=== PATIENT | female | born 1990 | race Caucasian/White ===

== ENCOUNTER 2017-01-05 00:20 | Inpatient (IN) | payer MEDICAID ==
[~2017-01-05] VITALS: Ht 162.6 cm; Wt 97.5 kg
[2017-01-05] MEDS ORDERED: IRON65TA11 PO (01:57)
[2017-01-05] MEDS ORDERED: PREN-546 PO (01:59)
[2017-01-05] MEDS ORDERED: LACTATED RINGERS 1,000 ML IV SCH (02:00)
[2017-01-05] MEDS ORDERED: CITRIC ACID/SODIUM CITRATE 30 ML UDC PO ONE (02:05)
[2017-01-05] MEDS ORDERED: ceFAZolin 1,000 MG VIAL ONE (02:08)
[2017-01-05] MEDS ORDERED: CITRIC ACID/SODIUM CITRATE 30 ML UDC ONE (02:11)
[2017-01-05 02:39] LABS: APPEARANCE,URINE SL CLOUDY (CLEAR); BILIRUBIN,URINE NEGATIVE (NEGATIVE); BLOOD, URINE NEGATIVE (NEGATIVE); COLOR,URINE YELLOW (YELLOW); LEUKOCYTE ESTERASE ,URINE NEGATIVE (NEGATIVE); NITRITE, URINE NEGATIVE (NEGATIVE); PROTEIN,URINE NEGATIVE (NEGATIVE); UGLUCOSE NEGATIVE (NEGATIVE); UROBILINOGEN,URINE 0.2 EU/dL (0.2 - 1)
[2017-01-05 02:46] LABS: BASOPHILS % (AUTO) 0.3 % (0.0-2.0); EOSINOPHILS # (AUTO) 0.1 K/uL (0-0.4); EOSINOPHILS % (AUTO) 0.7 % (0.0-4.0); HEMATOCRIT 37.2 % (36-48); HEMOGLOBIN 12.5 g/dL (12.0-16.0); LYMPHOCYTES # (AUTO) 1.8 K/uL (2.5-16.5); LYMPHOCYTES % (AUTO) 16.8 % (20.5-51.1); MEAN CORPUSCULAR HEMOGLOBIN 29 pg (27-31); MEAN CORPUSCULAR HGB CONC 33 g/dL (33-37); MEAN CORPUSCULAR VOLUME 86 fL (80-94); MONOCYTES % (AUTO) 9.2 % (1.7-9.3); NEUTROPHILS # (AUTO) 7.6 K/uL (1.8-7.7); PLATELET COUNT (AUTO) 224 K/uL (140-450); RED BLOOD CELL COUNT(AUTO) 4.31 MIL/uL (4.20-5.40); RED CELL DISTRIBUTION WIDTH 16.8 % (11.6-13.7); WHITE BLOOD COUNT (AUTO) 10.5 K/uL (4.8-10.8)
[2017-01-05 02:53] LABS: ALBUMIN 2.4 g/dL (3.4-5.0); ANION GAP 15.4 (8-16); CALCIUM 7.9 mg/dL (8.5-10.1); CARBON DIOXIDE 22.8 mmol/L (21-32); CREATININE 0.4 mg/dL (0.6-1.3); POTASSIUM 3.2 mmol/L (3.5-5.1); TOTAL BILIRUBIN 0.3 mg/dL (0.0-1.0); TOTAL PROTEIN, SERUM 6.1 g/dL (6.4-8.2)
[2017-01-05 03:21] LABS: HIV RAPID SCREEN NON-REACTIVE (NON REACTIV)
[2017-01-05 03:30] LABS: BACTERIA,URINE FEW /HPF (None Seen); RBC,URINE 0-5 (RARE) /HPF (0-5); SQUAMOUS EPITHELIAL CELL,UR 0-3 (FEW) /LPF (0-3 (FEW)); WBC,URINE 0-5 (RARE) /HPF (0-5)
[2017-01-05 06:33] VITALS: BP 108/67
[2017-01-05] MEDS ORDERED: HYDROcodone/APAP 5/325 MG 1 TAB TAB PO PRN (06:50)
[2017-01-05] MEDS ORDERED: MEASLES, MUMPS, AND RUBELLA 1 VIAL SQVAC PRN (06:50)
[2017-01-05] MEDS ORDERED: TEMAZEPAM 15 MG CAP PO PRN (06:50)
[2017-01-05] MEDS ORDERED: TRIMETHOBENZAMIDE 200 MG/2 ML SYR IM PRN (06:50)
[2017-01-05] MEDS ORDERED: IBUPROFEN 800 MG TAB PO PRN (06:50)
[2017-01-05] MEDS ORDERED: METHYLERGONOVINE 0.2 MG/ML AMP IM PRN (06:50)
[2017-01-05] MEDS ORDERED: fentaNYL 0.05 MG/ML VIAL ONE (07:12)
[2017-01-05] MEDS ORDERED: KETAMINE 500 MG/5 ML VIAL ONE (07:12)
[2017-01-05] MEDS ORDERED: MIDAZOLAM 2 MG/2 ML VIAL ONE (07:12)
[2017-01-05] MEDS ORDERED: MORPHINE PRES FREE 10 MG/10 ML AMP IV ONE (07:13)
[2017-01-05 07:30] LABS: RAPID PLASMA REAGIN NON-REACTIVE (Non Reactiv)
[2017-01-05] MEDS ORDERED: METHYLERGONOVINE 0.2 MG/ML AMP ONE (07:41)
[2017-01-05] MEDS ORDERED: diphenhydrAMINE 50 MG/ML VIAL IVP PRN (07:55)
[2017-01-05] MEDS ORDERED: ONDANSETRON 4 MG/2 ML VIAL IVP PRN (07:55)
[2017-01-05] MEDS ORDERED: KETOROLAC 30 MG/ML VIAL IVP PRN (07:55)
--- NOTE | 2017-01-05 07:56 | NUR ---
PATIENT HAS BEEN SCREENED AND CATEGORIZED LOW NUTRITION RISK. PATIENT WILL BE SEEN WITHIN 7 DAYS OF ADMISSION. 01/11/[address]
[2017-01-05] MEDS ORDERED: OXYTOCIN 20 UNITS/LR PREMIX 1,000 ML IV ONE (08:09)
[2017-01-05] MEDS: OXYTOCIN 20 UNITS/LR PREMIX 1,000 ML IV SCH ×2 (10:33→17:32)
[2017-01-05] MEDS ORDERED: DOCUSATE SOD/SENNA 50/8.6 MG 1 TAB PO SCH (21:00)
[2017-01-06] MEDS ORDERED: INFLUENZA VIRUS VACCINE QUAD 0.5 ML SYR IMVAC SCH ×2 (01:00→22:30)
[2017-01-06] MEDS: OXYTOCIN 20 UNITS/LR PREMIX 1,000 ML IV SCH (01:58)
[2017-01-06 05:41] LABS: BASOPHILS % (AUTO) 0.1 % (0.0-2.0); EOSINOPHILS # (AUTO) 0.2 K/uL (0-0.4); EOSINOPHILS % (AUTO) 1.4 % (0.0-4.0); HEMATOCRIT 33.4 % (36-48); LYMPHOCYTES # (AUTO) 1.1 K/uL (2.5-16.5); LYMPHOCYTES % (AUTO) 7.3 % (20.5-51.1); MEAN CORPUSCULAR HEMOGLOBIN 29 pg (27-31); MEAN CORPUSCULAR HGB CONC 33 g/dL (33-37); MEAN CORPUSCULAR VOLUME 88 fL (80-94); MONOCYTES % (AUTO) 6.6 % (1.7-9.3); NEUTROPHILS # (AUTO) 12.1 K/uL (1.8-7.7); NEUTROPHILS % (AUTO) 84.6 % (42.2-75.2); PLATELET COUNT (AUTO) 213 K/uL (140-450); RED BLOOD CELL COUNT(AUTO) 3.82 MIL/uL (4.20-5.40); RED CELL DISTRIBUTION WIDTH 17.1 % (11.6-13.7); WHITE BLOOD COUNT (AUTO) 14.4 K/uL (4.8-10.8)
[2017-01-06] MEDS: SIMETHICONE 80 MG TAB.CHEW PO PRN ×2 (12:42→17:45)
--- NOTE | 2017-01-06 15:53 | NUR ---
CM NOTE: INITIAL REVIEW SENT TO ALLIED PHYSICIAN FAX# [phone] PH# [phone], JAVIER [phone], MARTÍN [phone], ALEX [phone], [place] [phone]
[2017-01-06] MEDS: IBUPROFEN 800 MG TAB PO PRN (17:45)
[2017-01-07] MEDS: IBUPROFEN 800 MG TAB PO PRN (05:38)
[2017-01-07] MEDS: oxyCODONE/APAP 5/325 MG 1 TAB TAB PO PRN ×2 (08:12→12:17)
[2017-01-07] MEDS: SIMETHICONE 80 MG TAB.CHEW PO PRN (08:12)
[2017-01-07] MEDS ORDERED: IBUP-2213 PO (11:25)
== END 2017-01-07 14:00 | disposition home or self-care (01) | DRG 540 ==
LOC: MFCC 00:20
PROVIDERS: ADMIT Obstetrics & Gynecology; ATTEND Obstetrics & Gynecology
PROC: 0UB70ZZ Excision of Bilateral Fallopian Tubes, Open Approach (ICD-10-PCS; 2017-01-05)
PROC: 10D00Z1 Extraction of Products of Conception, Low, Open Approach (ICD-10-PCS; principal; 2017-01-05 07:00)
PROC: 3E0234Z Introduction of Serum, Toxoid and Vaccine into Muscle, Percutaneous Approach (ICD-10-PCS; 2017-01-06)
DX: O34.211 Maternal care for low transverse scar from previous cesarean delivery (principal); E66.01 Morbid (severe) obesity due to excess calories; O99.214 Obesity complicating childbirth; O09.43 Supervision of pregnancy with grand multiparity, third trimester; Z23 Encounter for immunization; Z3A.39 39 weeks gestation of pregnancy; Z37.0 Single live birth; Z30.2 Encounter for sterilization; Z68.36 Body mass index [BMI] 36.0-36.9, adult
CPT/HCPCS: 36415; 80053; 81001; 85025; 86592; 86886; 86900; 86901; 88302; 90658; 90715; J0690; J2210; J2250; J2270; J2590; J3010; J3250; J7060; J7120